=== PATIENT | male | born 1990 | race Caucasian/White ===

== ENCOUNTER 2017-02-20 11:42 | Emergency (ER) | payer OTHER ==
[~2017-02-20] VITALS: Ht 190.5 cm; Wt 86.2 kg
--- NOTE | 2017-02-20 12:28 | Diagnostic Imaging Report ---
Indication: Injury. Pain. Comparison: None Findings: 3 views of the left hand are obtained. There is a minimally distracted tuft fracture distal phalanx of fifth finger. No additional fracture, malalignment or osseous destructive process is seen. No radiopaque foreign bodies are demonstrated. IMPRESSION: Minimally distracted tuft fracture of the distal phalanx of the left fifth finger. No additional abnormalities demonstrated. Report was called to Dr. Santillan by bettina at 12:27 p.m. Dictated by: Dictated on workstation # [id number]
[2017-02-20] MEDS ORDERED: TETANUS,DIPTH,PERTUSS P/F (BOOSTRIX) 0.5 ML VIAL IM STA (13:22)
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
[2017-02-20] MEDS ORDERED: LIDOCAINE 2% 20 ML (XYLOCAINE) VIAL INJ ONE (13:30)
[2017-02-20] MEDS ORDERED: BUPIVACAINE 0.5% 30 ML (SENSORCAINE) VIAL INJ ONE (13:30)
[2017-02-20] MEDS ORDERED: HYDR-3812 PO (13:51)
[2017-02-20 14:43] VITALS: BP 130/88
== END 2017-02-20 14:45 | disposition home or self-care (01) ==
LOC: EDUNIT# 11:42 → ER 11:44
DX: S62.637B Displaced fracture of distal phalanx of left little finger, initial encounter for open fracture (principal); Z23 Encounter for immunization; F17.210 Nicotine dependence, cigarettes, uncomplicated; W23.0XXA Caught, crushed, jammed, or pinched between moving objects, initial encounter; Y99.8 Other external cause status
CPT/HCPCS: 12041; 64450; 73130; 90471; 90715

== ENCOUNTER 2018-04-07 16:38 | Emergency (ER) | payer SELFPAY ==
[~2018-04-07] VITALS: Ht 182.9 cm; Wt 90.7 kg
[~2018-04-07 16:38] MED LIST: ACHD5005 PO
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
[2018-04-07] MEDS ORDERED: AMOX500C2 PO (16:52)
[2018-04-07] MEDS ORDERED: TRANEXAMIC ACID 100 MG/ML 10 ML INJECTION IV ONE (17:00)
--- NOTE | 2018-04-07 17:03 | ED EENT ---
History of Present Illness General Chief Complaint: Dental Problems/Pain Stated Complaint: DENTAL PAIN Nursing Triage Note: PT CO OF CONT OOZING OF BLOOD FROM L WISDOM TOOTH REMOVAL YESTERDAY, STATES HAS CLOT IN TOOTH HOLE AND WONT QUIT OOZING BLOOD Source: patient Exam Limitations: no limitations History of Present Illness Date Seen by Provider: Apr 07, 2018 Time Seen by Provider: 17:01 Initial Comments To ER per private vehicle with reports of persistent dental bleeding. He had his left lower wisdom tooth removed yesterday by Dr. Naranjo. He has a very large clot overlying this and persistent oozing of blood. He denies any pain. He does also report some persistent numbness to the left side of his tongue Timing/Duration: gradual Severity: moderate Location: dental Associated Symptoms: denies symptoms Allergies and Home Medications Allergies Coded Allergies: No Known Drug Allergies (Unverified , 02/20/17) Home Medications Amoxicillin 500 Mg Capsule, 500 MG PO TID, (Reported) Hydrocodone Bit/Acetaminophen 1 Each Tablet, 1 EACH PO Q4H PRN for PAIN Prescribed by: KEITH GREENWOOD on 02/20/17 1351 Patient Home Medication List Home Medication List Reviewed: Yes Review of Systems Constitutional: see HPI Eyes: No Symptoms Reported Ears: No Symptoms Reported Nose: no symptoms reported Mouth: no symptoms reported Throat: no symptoms reported Respiratory: no symptoms reported Cardiovascular: no symptoms reported Musculoskeletal: no symptoms reported Past Jfsdhuj-Hyhewv-Brpdtu Hx Patient Social History Alcohol Use: Denies Use Recreational Drug Use: No Smoking Status: Current Everyday Smoker Type Used: Cigars Recent Foreign Travel: No Contact w/Someone Who Travel: No Recent Infectious Disease Expo: No Recent Hopitalizations: No Physical Abuse: No Sexual Abuse: No Immunizations Up To Date Tetanus Booster (TDap): More than 5yrs Seasonal Allergies Seasonal Allergies: No Past Medical History 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) Respiratory: No Cardiac: No Neurological: No Genitourinary: No Gastrointestinal: No Musculoskeletal: No Endocrine: No HEENT: No Cancer: No Psychosocial: No Nursing Suicide Risk Score: 0 Integumentary: No Blood Disorders: No Family Medical History No Pertinent Family Hx Physical Exam Vital Signs Vital Signs - First Documented 04/07/18 16:45 Temp 97.5 Pulse 66 Resp 16 B/P (MAP) 140/97 (111) Pulse Ox 97 General Appearance: WD/WN, no apparent distress Eyes: bilateral eye normal inspection, bilateral eye PERRL, bilateral eye EOMI Ears: bilateral ear auricle normal, bilateral ear canal normal, bilateral ear TM normal Mouth/Throat: other (there is a large clot of blood overlying the former site of the left lower wisdom tooth. Minimal oozing of blood around the base of this. This clot measures nearly As large as his tongue. The clot was trimmed with scissors but not removed from the socket. There is still persistent oozing of blood so I'll saturate some 2 x 2's in some TXA and have him bite down this for a few minutes.) Neck: non-tender, full range of motion Respiratory: no respiratory distress, no accessory muscle use Gastrointestinal: normal bowel sounds, non tender Neurologic/Psychiatric: alert, normal mood/affect, oriented x 3 Skin: normal color, warm/dry Procedures/Interventions Suture Size: 4-0 Progress/Results/Core Measures Results/Orders My Orders Orders - PAMELA ANDERSON APRN Tranexamic Acid Injection (Cyklokapron I (04/07/18 17:00) Lidocaine/Epi 2% 1:100,000 (Xylocaine/Ep (04/07/18 18:00) Medications Given in ED Current Medications Medications Dose Ordered Sig/Alessandra Route Start Time Stop Time Status Last Admin Dose Admin Tranexamic Acid for topical dental ... ONCE ONCE IV 04/07/18 17:00 04/07/18 17:01 DC 04/07/18 17:21 300 MG Vital Signs/I&O 04/07/18 16:45 Temp 97.5 Pulse 66 Resp 16 B/P (MAP) 140/97 (111) Pulse Ox 97 Blood Pressure Mean: 111 Departure Communication (Admissions) a 2 x 2 was folded in half and placed over the tooth socket then saturated with TXA. We will have him hold firm pressure on this area for about 20 minutes and then reevaluate. 1818- the topical TXA saturated 2 x 2 has been removed. There is no oozing of blood at this time we will reevaluate in about 15 minutes. 184- minimal slow oozing of blood from the socket around the clot. I did offer to anesthetize with lidocaine plus epinephrine to help slow the bleeding and applied a [id number] stitch over the socket. Alternatively I did offer that he could go on home, continue to bite down on some folded gauze to apply direct pressure to this area. At this time, he would prefer to go on home to bite down on some gauze and return for worsening bleeding. Impression Primary Impression: Postoperative bleeding from mouth Disposition: HOME, SELF-CARE Condition: Stable Departure-Patient Inst. Decision time for Depature: 18:40 Referrals: NO,LOCAL PHYSICIAN (PCP/Family) Primary Care Physician Patient Instructions: NO INSTRUCTIONS GIVEN Add. Discharge Instructions: 1. Return to ER for any fevers or chills 2. Follow-up with Dr. Naranjo next week. Return to ER for any heavy bleeding. I would try to bite down on some gauze directly over this socket for the rest of the evening to help minimize bleeding. If this fails to control the bleeding then return to the emergency room. All discharge instructions reviewed with patient and/or family. Voiced understanding. PAMELA ANDERSON APRN Apr 07, 2018 17:03
[2018-04-07] MEDS ORDERED: LIDOCAINE/EPI 2% 1:100,00 (XYLOCAINE) 20 ML VIAL INJ ONE (18:00)
[2018-04-07 18:48] VITALS: BP 140/97
== END 2018-04-07 18:50 | disposition home or self-care (01) ==
LOC: EDUNIT# 16:38 → ER 16:40
DX: K91.840 Postprocedural hemorrhage of a digestive system organ or structure following a digestive system procedure (principal); F17.290 Nicotine dependence, other tobacco product, uncomplicated; Z98.890 Other specified postprocedural states
CPT/HCPCS: 96360; 99282